=== PATIENT | male | born 1995 | race Caucasian/White ===

== ENCOUNTER 2017-11-08 21:19 | Emergency (ER) | payer OTHER ==
[~2017-11-08] VITALS: Ht 182.9 cm; Wt 95.9 kg
[2017-11-08] MEDS ORDERED: PROMETHAZINE 25 MG/ML, 1ML IM ONE (23:30)
[2017-11-08] MEDS ORDERED: SODIUM CHLORIDE FLUSH 10ML SYR IVF ONE (23:30)
[2017-11-08] MEDS ORDERED: FAMOTIDINE 20 MG/2 ML IVP ONE (23:30)
[2017-11-08] MEDS ORDERED: SODIUM CHLORIDE 0.9% 1,000ML IVBOLUS ONE (23:30)
[2017-11-08 23:51] LABS: BASOPHILS # (AUTO) 0.06 x10^3/uL (0-0.1); BASOPHILS % (AUTO) 1 % (0-1); EOSINOPHILS # (AUTO) 0.05 x10^3/uL (0-0.4); EOSINOPHILS % (AUTO) 1 % (1-7); LYMPHOCYTES # (AUTO) 2.17 x10^3/uL (1-3.4); LYMPHOCYTES % (AUTO) 23 % (22-44); MD NO; MEAN CORPUSCULAR HEMOGLOBIN 30.7 pg (27.5-34.5); MEAN CORPUSCULAR HGB CONC 34.6 g/dL (33.2-36.2); MEAN CORPUSCULAR VOLUME 88.6 fL (81-97); MEAN PLATELET VOLUME 11.5 fL (7.4-10.4); MONOCYTES # (AUTO) 0.84 x10^3/uL (0.2-0.8); MONOCYTES % (AUTO) 9 % (2-9); NEUTROPHILS # (AUTO) 6.22 x10^3/uL (1.8-6.8); NEUTROPHILS % (AUTO) 67 % (42-75); PLATELET COUNT 162 x10^3/uL (130-400); RED BLOOD COUNT 5.47 x10^6/uL (4.38-5.82); RED CELL DISTRIBUTION WIDTH 12.6 % (9.4-14.8)
[2017-11-08] MEDS ORDERED: PROMETHAZINE 25 MG/ML, 1ML ONE (23:53)
[2017-11-08] MEDS ORDERED: FAMOTIDINE 20 MG/2 ML ONE (23:53)
[2017-11-08 23:54] LABS: ALANINE AMINOTRANSFERASE 13 U/L (12-78); ALBUMIN 4.1 g/dL (3.4-5.0); ANION GAP 5 mmol/L (5-15); CALCIUM 9.2 mg/dL (8.5-10.1); CHLORIDE 103 mmol/L (98-107)
[2017-11-08 23:56] LABS: ALKALINE PHOSPHATASE 65 U/L (45-117); BILIRUBIN,TOTAL 1.3 mg/dL (0.2-1.0); TOTAL PROTEIN 7.2 g/dL (6.4-8.2)
[2017-11-09 01:37] VITALS: BP 135/76
== END 2017-11-09 01:37 | disposition home or self-care (01) ==
LOC: ED 23:59
DX: R11.2 Nausea with vomiting, unspecified (principal); R10.13 Epigastric pain
CPT/HCPCS: 36415; 74021; 76700; 80053; 83690; 85025; 86677; 96372; 96374; 99285; J2550; J7030; S0028

== ENCOUNTER 2019-03-08 14:06 | Emergency (ER) | payer BC, OTHER ==
[~2019-03-08] VITALS: Ht 182.9 cm; Wt 96.6 kg
[2019-03-08 14:17] VITALS: BP 133/79
[2019-03-08] MEDS ORDERED: IBUPROFEN 200 MG TABLET ONE (14:47)
[2019-03-08] MEDS ORDERED: IBUPROFEN 600 MG TABLET PO ONE (15:00)
== END 2019-03-08 15:38 | disposition home or self-care (01) ==
LOC: ED 15:32
DX: S83.014A Lateral dislocation of right patella, initial encounter (principal); W01.0XXA Fall on same level from slipping, tripping and stumbling without subsequent striking against object, initial encounter; Y93.23 Activity, snow (alpine) (downhill) skiing, snowboarding, sledding, tobogganing and snow tubing; Y92.328 Other athletic field as the place of occurrence of the external cause; Y99.8 Other external cause status
CPT/HCPCS: 99283